=== PATIENT | female | born 1935 | race Caucasian/White ===

== ENCOUNTER 2021-12-20 07:22 | Emergency (ER) | payer OTHER | END 2021-12-20 08:21 | disposition home or self-care (01) | LOC: VM.ED 07:22 | DX: S01.01XA Laceration without foreign body of scalp, initial encounter (principal); W01.198A Fall on same level from slipping, tripping and stumbling with subsequent striking against other object, initial encounter | CPT/HCPCS: 12001; 99282; 99283 ==